=== PATIENT | female | born 1960 | race American Indian/Alaskan Native ===

== ENCOUNTER 2017-02-19 09:55 | Day surgery (SDC) | payer OTHER ==
[2017-02-18 17:03] VITALS: BMI 42.3
[2017-02-19] MEDS ORDERED: BETAMET ACET/BETAMET NA PH 30 MG/5 ML VIAL IM ONE (11:35)
[2017-02-19] MEDS ORDERED: BUPIVACAINE HCL/PF 0.25% (2.5MG/ML) 10 ML VIAL IJ ONE (11:36)
[2017-02-19] MEDS ORDERED: LIDOCAINE HCL 1%, 10 MG/ML (20ML VIAL) INF ONE (11:37)
[2017-02-19 12:52] VITALS: BP 121/84; PULSE 74; TEMP 97.8
== END 2017-02-19 13:01 | disposition home or self-care (01) ==
LOC: JASU-SURG 09:55
PROVIDERS: ATTEND Physical Medicine & Rehabilitation
PROC: 3E0R33Z Introduction of Anti-inflammatory into Spinal Canal, Percutaneous Approach (ICD-10-PCS; 2017-02-19)
PROC: B01BYZZ Fluoroscopy of Spinal Cord using Other Contrast (ICD-10-PCS; 2017-02-19)
PROC: 3E0R3BZ Introduction of Anesthetic Agent into Spinal Canal, Percutaneous Approach (ICD-10-PCS; principal; 2017-02-19 12:30)
DX: M54.16 Radiculopathy, lumbar region (principal); M54.9 Dorsalgia, unspecified
CPT/HCPCS: 76000-TC

== ENCOUNTER 2017-07-02 09:59 | Day surgery (SDC) | payer OTHER ==
[2017-07-01 10:37] VITALS: BMI 34.2
[2017-07-02] MEDS ORDERED: BUPIVACAINE HCL/PF 0.25% (2.5MG/ML) 10 ML VIAL ONE (11:11)
[2017-07-02] MEDS ORDERED: BETAMET ACET/BETAMET NA PH 30 MG/5 ML VIAL ONE (11:11)
[2017-07-02] MEDS ORDERED: LIDOCAINE HCL 1%, 10 MG/ML (20ML VIAL) ONE (11:11)
[2017-07-02] MEDS ORDERED: LIDOCAINE HCL 1%, 10 MG/ML (50 mL VIAL) IJ ONE ×2 (11:23→11:37)
[2017-07-02] MEDS ORDERED: BUPIVACAINE HCL/PF 0.25% (2.5MG/ML) 10 ML VIAL IJ ONE ×2 (11:23→11:37)
[2017-07-02] MEDS ORDERED: IOHEXOL 180 MG/1 ML ML IJ ONE ×2 (11:24→11:37)
[2017-07-02] MEDS ORDERED: BETAMET ACET/BETAMET NA PH 30 MG/5 ML VIAL IJ ONE ×2 (11:24→11:37)
[2017-07-02] MEDS ORDERED: PROPOFOL 20 ML ONE ×2 (11:28)
[2017-07-02 12:01] VITALS: TEMP 98
[2017-07-02 12:26] VITALS: BP 125/89; PULSE 87
--- NOTE | 2017-07-02 19:15 | PROC ---
Procedure Note Procedure: Date of service: 07/02/2017 Preoperative Diagnosis: Low back pain and lumbar radiculopathy on Left Postoperative Diagnosis: Same Procedure Performed: Lumbar Epidural Steroid Injection (LESI) on Left L4-5 with dye under Fluoroscopy Anesthesia: Local / MAC Anesthesiologist: Dr. Rowe Procedure: I discussed with the patient in detail about the risks, benefits, and alternatives to treatment not only limited to infection, headache, numbness , weakness, and injury to nerves, blood vessels and muscles. The patient understood, agreed and signed the written consent. The patient was placed in the prone position with the head, abdomen and legs supported with the pillows. The lumbosacral area was prepped and draped with Betadine times three in a sterile fashion. Lumbar vertebrae were identified under the C-arm. At L4-5 level on the Left side, 3 ml of 1 % Lidocaine was infiltrated into the skin and subcutaneous tissue. A 3 inch, #20 gauge Tuohy needle was advanced to the epidural space with loss of resistance technique under fluoroscopic guidance. Aspiration was negative for cerebrospinal fluid and blood. 2ml of Omnipaque ( radio-opaque dye) was injected to confirm the tip of the needle into epidural space and spread of dye. There was no CSF or vascular spread. The spread of dye was noted cranially and caudally on epidurogram. Aspiration was done again which was negative. A solution of 2.5 ml of Dexamethasone, 2.5 ml of 0.25% Marcaine and a total of 5 ml was injected slowly. While Tuohy needle was withdrawn 2.0 ml of 1 % Lidocaine was infiltrated. Bleeding was checked. Betadine was wiped off. A sterile bandage was placed. The patient tolerated the procedure well. There were no immediate complications. The patient was transferred to the recovery room. The patient was observed for some time and discharged as per ASU criteria. The patient was told to apply ice at the injection site. Follow up appointment was given and also call my office at . If there is any problem, call my office or report to Emergency Room. Mookie King M.D.
== END 2017-07-02 12:35 | disposition home or self-care (01) ==
LOC: JASU-SURG 09:59
PROVIDERS: ATTEND Physical Medicine & Rehabilitation
PROC: 3E0R33Z Introduction of Anti-inflammatory into Spinal Canal, Percutaneous Approach (ICD-10-PCS; 2017-07-02)
PROC: B01BYZZ Fluoroscopy of Spinal Cord using Other Contrast (ICD-10-PCS; 2017-07-02)
PROC: 3E0R3BZ Introduction of Anesthetic Agent into Spinal Canal, Percutaneous Approach (ICD-10-PCS; principal; 2017-07-02 10:30)
DX: M54.16 Radiculopathy, lumbar region (principal); M54.5 Low back pain
CPT/HCPCS: 76000-TC-FY; 82962

== ENCOUNTER 2023-04-14 14:24 | Observation (INO) | payer OTHER ==
[2023-04-14 15:10] LABS: BASO % 0.5 % (0-2.0); EOS % 0.1 % (0-4.5); HEMATOCRIT 47.9 % (32.4-45.2); LYMPH % 12.9 % (8-40); MCH 29.6 pg (25.7-33.7); MCHC 33.3 g/dl (32.0-36.0); MEAN CELL VOLUME 88.9 fl (80-96); MEAN PLT VOLUME 9.9 fl (7.5-11.1); MONO % 4.6 % (3.8-10.2); NEUT % 81.9 % (42.8-82.8); PLATELET COUNT 215 10^3/uL (134-434); RBC 5.39 M/mm3 (3.60-5.2); RDW 13.2 % (11.6-15.6)
[2023-04-14 15:15] LABS: PROTHROMBIN TIME (PATIENT) 11.6 SEC (9.7-13.0)
[2023-04-14 15:18] LABS: ACTIVATED PTT 33.6 SECONDS (25.2-36.5)
[2023-04-14 15:33] LABS: POTASSIUM 3.7 mmol/L (3.5-5.1)
[2023-04-14 15:36] LABS: ALBUMIN 4.2 g/dl (3.4-5.0); MAGNESIUM 1.9 mg/dL (1.8-2.4)
[2023-04-14 15:39] LABS: CREATININE 0.8 mg/dL (0.55-1.3)
[2023-04-14] MEDS ORDERED: diazePAM CARPU-JECT 10 MG/2 ML DISP.SYRIN IVPUSH ONE ×2 (15:39→16:43)
[2023-04-14] MEDS ORDERED: ONDANSETRON 4 MG/2 ML VIAL IVPUSH ONE (15:39)
[2023-04-14 15:41] LABS: TOT PROT 8.5 g/dl (6.4-8.2)
[2023-04-14] MEDS ORDERED: diazePAM CARPU-JECT 10 MG/2 ML DISP.SYRIN ONE (15:44)
[2023-04-14] MEDS ORDERED: ONDANSETRON 4 MG/2 ML VIAL ONE (15:45)
[2023-04-14] MEDS ORDERED: ACETAMINOPHEN 1000 MG/100 ML BAG IVPB ONE ×2 (16:44→23:17)
[2023-04-14] MEDS ORDERED: ACETAMINOPHEN INJECTION 100 ML IVPB ONE (16:46)
[2023-04-14] MEDS ORDERED: ONDANSETRON 4 MG/2 ML VIAL IVPUSH PRN (16:50)
[2023-04-14] MEDS: LACTATED RINGERS SOLUTION 1,000 ML IV SCH (17:22)
[2023-04-14] MEDS: INSULIN ASPART SLIDING SCALE (NOVOLOG) 1 VIAL SQ SCH (17:23)
[2023-04-14] MEDS ORDERED: diazePAM 5 MG TABLET PO SCH (17:25)
[2023-04-14] MEDS ORDERED: diazePAM 5 MG TABLET PO ONE (17:30)
[2023-04-14] MEDS ORDERED: LORazepam 1 MG TABLET PO ONE (18:28)
[2023-04-14] MEDS ORDERED: LORazepam 1 MG TABLET PO PRN (18:28)
[2023-04-14] MEDS ORDERED: LORazepam 1 MG TABLET ONE (18:46)
[2023-04-14] MEDS: LORazepam 1 MG TABLET PO SCH ×2 (18:48→23:20)
[2023-04-15 02:11] VITALS: BMI 24.5
[2023-04-15] MEDS: LORazepam 1 MG TABLET PO SCH ×3 (06:50→17:18)
[2023-04-15] MEDS: INSULIN ASPART SLIDING SCALE (NOVOLOG) 1 VIAL SQ SCH ×3 (06:51→17:01)
[2023-04-15] MEDS: metFORMIN HCL 500 MG TABLET (FP) PO SCH ×2 (06:53→17:05)
[2023-04-15 07:36] LABS: INR 1.01 (0.83-1.09); PROTHROMBIN TIME (PATIENT) 11.7 SEC (9.7-13.0)
[2023-04-15 07:38] LABS: ACTIVATED PTT 33.6 SECONDS (25.2-36.5)
[2023-04-15 07:40] LABS: POTASSIUM 3.5 mmol/L (3.5-5.1)
[2023-04-15 07:43] LABS: ALBUMIN 3.8 g/dl (3.4-5.0); BLOOD UREA NITROGEN 11.3 mg/dL (7-18); CALCIUM 9.9 mg/dL (8.5-10.1); MAGNESIUM 1.9 mg/dL (1.8-2.4)
[2023-04-15 07:46] LABS: CREATININE 0.8 mg/dL (0.55-1.3); PHOSPHOROUS 4.2 mg/dL (2.5-4.9)
[2023-04-15 07:48] LABS: BILIRUBIN,TOTAL 1.1 mg/dL (0.2-1); TOT PROT 7.8 g/dl (6.4-8.2)
[2023-04-15 07:54] LABS: BASO % 0.4 % (0-2.0); EOS % 0.2 % (0-4.5); LYMPH % 21.7 % (8-40); MCH 29.9 pg (25.7-33.7); MEAN CELL VOLUME 87.9 fl (80-96); MEAN PLT VOLUME 10.5 fl (7.5-11.1); MONO % 6.3 % (3.8-10.2); NEUT % 71.4 % (42.8-82.8); PLATELET COUNT 200 10^3/uL (134-434); RBC 5.35 M/mm3 (3.60-5.2); RDW 13.5 % (11.6-15.6); WHITE BLOOD COUNT 9.3 K/mm3 (4.0-10.0)
[2023-04-15 08:58] VITALS: BP 121/97; PULSE 103; RESP 18; TEMP 97.7
[2023-04-15] MEDS ORDERED: ENOXAPARIN NA (PORCINE) 40 MG/0.4 ML DISP.SYRIN SQ SCH (10:00)
[2023-04-15 12:22] LABS: PH,URINE 5.5 (5.0-8.0); URINE APPEARANCE CLEAR; URINE BILIRUBIN NEGATIVE (NEGATIVE); URINE COLOR YELLOW; URINE GLUCOSE (UA) NEGATIVE (NEGATIVE); URINE KETONE NEGATIVE (NEGATIVE); URINE LEUK ESTERASE TRACE (NEGATIVE); URINE NITRITE NEGATIVE (NEGATIVE); URINE PROTEIN NEGATIVE (NEGATIVE); URINE UROBILINOGEN 0.2 mg/dL (0.2-1.0)
[2023-04-15 12:30] LABS: EPI CELLS 43.2 /uL (0-25.1); HYALINE CASTS 0.59 /uL (0-3.1); URINE BACTERIA 394.3 /uL (0-1359); URINE RBC 7.5 /uL (0-23.9); URINE WBC 45.1 /uL (0-25.8)
[2023-04-15 13:22] LABS: METHADONE, UR NEGATIVE (NEGATIVE); OPIATES, URI NEGATIVE (NEGATIVE)
[2023-04-15 13:23] LABS: PHENCYCLIDINE,URINE NEGATIVE (NEGATIVE); URINE BARBITURATES NEGATIVE (NEGATIVE)
[2023-04-15 13:27] LABS: COCAINE, UR POSITIVE (NEGATIVE); URINE AMPHETAMINES NEGATIVE (NEGATIVE); URINE BENZODIAZEPINES POSITIVE (NEGATIVE)
[2023-04-15] MEDS: LACTATED RINGERS SOLUTION 1,000 ML IV SCH (17:01)
[2023-04-16] MEDS ORDERED: LORazepam 1 MG TABLET PO SCH (05:00)
[2023-04-16] MEDS ORDERED: diazePAM 5 MG TABLET PO SCH (06:00)
[2023-04-17] MEDS ORDERED: LORazepam 0.5 MG TABLET PO PRN
[2023-04-17] MEDS ORDERED: LORazepam 0.5 MG TABLET PO SCH (05:00)
[2023-04-18] MEDS ORDERED: LORazepam 0.5 MG TABLET PO ONE (05:00)
== END 2023-04-15 17:22 | disposition other institution (70) ==
LOC: JER 14:24 → JERBED 16:39 → J4W 19:29
PROVIDERS: ADMIT Internal Medicine; ATTEND Internal Medicine
PROC: 3E033NZ Introduction of Analgesics, Hypnotics, Sedatives into Peripheral Vein, Percutaneous Approach (ICD-10-PCS; principal; 2023-04-14)
PROC: 3E023GC Introduction of Other Therapeutic Substance into Muscle, Percutaneous Approach (ICD-10-PCS; 2023-04-14)
PROC: 3E033GC Introduction of Other Therapeutic Substance into Peripheral Vein, Percutaneous Approach (ICD-10-PCS; 2023-04-14)
DX: R07.9 Chest pain, unspecified (principal); F15.93 Other stimulant use, unspecified with withdrawal; F14.988 Cocaine use, unspecified with other cocaine-induced disorder; F10.90 Alcohol use, unspecified, uncomplicated; F19.10 Other psychoactive substance abuse, uncomplicated; E11.9 Type 2 diabetes mellitus without complications; J45.909 Unspecified asthma, uncomplicated; F17.200 Nicotine dependence, unspecified, uncomplicated; Z88.5 Allergy status to narcotic agent; I16.0 Hypertensive urgency
CPT/HCPCS: 36415; 70450-TC; 71275-TC; 74174-TC; 80053; 80307; 81003; 82962; 83605; 83735; 84100; 84484; 85025; 85610; 85730; 86850; 86900; 86901; 87086; 93005; 93010; 96372; 96374; 96375; 96376; 99285-25; G0378; J0131; Q9967